=== PATIENT | female | born 1950 | race Caucasian/White ===

== ENCOUNTER 2017-07-06 22:28 | Emergency (ER) | payer MEDICARE, MEDICAID ==
[2017-07-07] MEDS ORDERED: predniSONE TAB* 20 MG PO ONE (01:52)
[2017-07-07] MEDS ORDERED: Famotidine TAB* 20 MG PO ONE (01:53)
[2017-07-07] MEDS ORDERED: hydrOXYzine HCL TAB* 50 MG PO ONE (01:53)
[2017-07-07 03:08] VITALS: BP 127/72
--- NOTE | 2017-07-07 03:45 | ED ---
Crissy Grant Julia, scribed for Cecilio Helms MD on 07/07/17 at 0148 . Skin Complaint - HPI Summary HPI Summary: This patient is a 67 year old F presenting to [facility] accompanied by friend with a chief complaint of worsening pruritic hives on her stomach and groin since 14: 00 07/06/17. Patient reports lip swelling. Patient reports shooting lower back pain for past 2 weeks. Patient has hx of back pain - History of Current Complaint Chief Complaint: EDGeneral Time Seen by Provider: 07/07/17 01:08 Stated Complaint: BACK PAIN,FOOT PAIN Hx Obtained From: Patient Skin Exposure Onset/Duration: Hours Ago Timing: Constant Onset Severity: Worse Since: - 14:00 Pain Intensity: 0 Pain Scale Used: 0-10 Numeric Aggravating Symptom(s): Nothing Alleviating Symptom(s): Nothing Associated Signs & Symptoms: Rash - pruitic - Allergy/Home Medications Allergies/Adverse Reactions: Allergies Allergy/AdvReac Type Severity Reaction Status Date / Time Adhesive Tape Allergy Severe Rash Verified 12/13/13 07:55 Nuts Allergy Severe Anaphylatic Uncoded 12/13/13 07:55 Shock PMH/Surg Hx/FS Hx/Imm Hx Endocrine/Hematology History: Denies: Hx Diabetes Cardiovascular History: Denies: Hx Congestive Heart Failure, Hx Hypertension Respiratory History: Reports: Hx Asthma GI History: Reports: Other GI Disorders - esophageal surgery Musculoskeletal History: Reports: Other Musculoskeletal History - back surgery Neurological History: Reports: Other Neuro Impairments/Disorders - panic attacks , anxiety Psychiatric History: Denies: Hx Eating Disorder, Hx of Violent Episodes Against Others - Cancer History Hx Chemotherapy: No Hx Radiation Therapy: No - Surgical History Surgery Procedure, Year, and Place: esophageal surgery, back surgery - Immunization History Date of Tetanus Vaccine: Unknown Infectious Disease History: No Infectious Disease History: Denies: Traveled Outside the [place] in Last 30 Days - Family History Known Family History: Positive: Other - reports non contributory - Social History Alcohol Use: None Substance Use Type: Reports: None Smoking Status (MU): Never Smoked Tobacco Review of Systems Negative: Fever Positive: Other - back pain Positive: Rash - abdomen groin, pruitic All Other Systems Reviewed And Are Negative: Yes Physical Exam Triage Information Reviewed: Yes Vital Signs On Initial Exam: Initial Vitals Temp Pulse Resp BP Pulse Ox 99 F 101 20 131/85 98 07/06/17 22:32 07/06/17 22:32 07/06/17 22:32 07/06/17 22:32 07/06/17 22:32 Vital Signs Reviewed: Yes Appearance: Positive: Well-Appearing - is itching Skin: Positive: Other - rash on LE and abdomen Head/Face: Positive: Other - lower lip swelling Eyes: Positive: Normal ENT: Positive: Normal ENT inspection Respiratory/Lung Sounds: Positive: Clear to Auscultation, Breath Sounds Present Cardiovascular: Positive: Normal Abdomen Description: Positive: Nontender Musculoskeletal: Positive: Normal Neurological: Positive: Normal Psychiatric: Positive: Normal AVPU Assessment: Alert Diagnostics - Vital Signs Vital Signs Temp Pulse Resp BP Pulse Ox 07/06/17 22:32 99 F 101 20 131/85 98 - Laboratory Lab Statement: Any lab studies that have been ordered have been reviewed, and results considered in the medical decision making process. Course/Dx - Course Course Of Treatment: Patient presents with pruitic rash on LE and abdomen and swelling of lower lip. Patient was given Pepsid, Atarax, and Prednisone for symptoms. Patient is discharge with dx of allergic reaction. - Diagnoses Provider Diagnoses: Allergic reaction Discharge - Discharge Plan Condition: Stable Disposition: HOME Prescriptions: hydrOXYzine HCL TAB* [Atarax 25 MG TAB*] 25 mg PO QID PRN #20 tab PRN Reason: Itching predniSONE TAB* [Deltasone TAB*] 40 mg PO DAILY #10 tab Patient Education Materials: Allergies (ED) Referrals: Karina Hernandez MD [Primary Care Provider] - Additional Instructions: Patient is given prescription of Atavax and Prednisone. RETURN TO THE EMERGENCY DEPARTMENT FOR CHANGING OR WORSENING SYMPTOMS. The documentation as recorded by the Crissy mix Julia accurately reflects the service I personally performed and the decisions made by , Cecilio Helms MD.
== END 2017-07-07 03:07 | disposition home or self-care (01) ==
LOC: ED 22:28
DX: T78.40XA Allergy, unspecified, initial encounter (principal); M54.9 Dorsalgia, unspecified; R21 Rash and other nonspecific skin eruption; X58.XXXA Exposure to other specified factors, initial encounter; M54.5 Low back pain
CPT/HCPCS: 99283; A9270-GY; J7512